=== PATIENT | male | born 2000 | race Caucasian/White ===

== ENCOUNTER 2024-08-15 11:59 | Emergency (ER) | payer BC, SELFPAY ==
[2024-08-15 12:02] VITALS: BP 121/72
--- NOTE | 2024-08-15 13:20 | ED.GENMED ---
History of Present Illness
General
Chief Complaint: Throat Problem
Time Seen by Provider: 08/15/24 13:10
History of Present Illness
History of Present Illness:
23 yo male w/ hx of eosinophilic esophagitis presents to the ED for evaluation of recurrent transient food impactions occurring over the past 6 months. Notes having approximately 4 episodes yesterday. Able to tolerate secretions and PO liquids
today. No vomiting. Notes that he was non compliant w/ recommended medications after ED visit due to food bolus in 2022. No current chest pain, SOB. Called GI specialist today and was advised to come to ED today.
Past History
Past History
ED Past Medical History: None
ED Past Surgical History: None
Social History
Tobacco: Vaping
Alcohol: Occasional
Drug: None
Living: with family
Employment: Employed
Family History
Family History: Other (Noncontributory)
Review of Systems
Review of Systems
Allergies reviewed?: Yes
All Other Systems: ROS reviewed and negative except as documented in HPI and ROS
Phy Exam
Physical Exam
Physical Exam:
GEN: Well appearing, NAD, WDWN
HEENT: Oral mucosa moist, no scleral icterus
Cardiac: Regular rate and rhythm, no murmurs
Lung: No respiratory distress, no tachypnea
MSK: No gross deformity or injuries
Skin: Good color, no pallor or jaundice, no rashes
Neuro: AO x3, moves all extremities freely
Psych: Calm, cooperative
Course
Vital Signs
Initial and Last Documented VS:
Initial Vital Signs
Temp Pulse Resp BP Pulse Ox
98.5 F 78 18 121/72 100
08/15/24 12:02 08/15/24 12:02 08/15/24 12:02 08/15/24 12:02 08/15/24 12:02
Last Documented Vital Signs
Temp Pulse Resp BP Pulse Ox
98.5 F 78 18 121/72 100
08/15/24 12:02 08/15/24 12:02 08/15/24 12:02 08/15/24 12:02 08/15/24 12:02
MDM/Problems Addressed
MDM/Problems Addressed:
Patient with no symptoms of active food bolus at this time. Will refer to GI as an outpatient, I discussed with GI on-call and they will make arrangements to see him later this week, will start PPIs and Carafate
*Critical Care Note
Total Time (30-74mins, 75-104mins- exclusive of procedures): Not Applicable
ED Attending Note
-
Portions of this chart may have been created with voice recognition software.� Occasional wrong word or��sound alike� substitutions may have occurred due to the inherent limitations of voice recognition software.
Discharge Plan
Departure
Patient Disposition: Home (Routine Discharge)
Date of Disposition: 08/15/24
Time of Disposition: 13:36
Patient with high blood pressure during this ER visit?: No
Discharge Problem:
Esophagitis
Instructions: Eosinophilic esophagitis
Prescriptions:
New
pantoprazole 40 mg tablet,delayed release (DR/EC)
40 mg PO BID 30 Days Qty: 60 0RF
sucralfate [Carafate] 1 gram tablet
1 g PO AC Qty: 90 0RF
Rx Instructions:
Dissolve tab in 10mL clear liquid prior to consumption
Activity Restrictions/Additional Instructions:
GI office will see you in follow up this August, at 230pm.
[facility]
[address]
[place] [address]
Interventions
Interventions:
*Risk Screen - Suicide Last Done: 08/15/24 12:02
*General Assessment Last Done: 08/15/24 12:02
*Neglect/Abuse Screening Last Done: 08/15/24 12:02
ED- Fall Risk Assessment Last Done: 08/15/24 12:18
*Nursing Disposition Last Done: 08/15/24 13:42
ED-EENT Assessment Last Done: 08/15/24 12:18
ED- Pulmonary Assessment Last Done: 08/15/24 12:18
Discharge Date and Time
Discharge Date/Time: 08/15/24 13:50
Print Language: SYRIAN
== END 2024-08-15 13:50 | disposition home or self-care (01) ==
LOC: EMR 11:59
PROVIDERS: EMERGENCY PHYSICIAN Emergency Medicine
DX: K20.90 Esophagitis, unspecified without bleeding (principal); F17.290 Nicotine dependence, other tobacco product, uncomplicated
CPT/HCPCS: 99283